=== PATIENT | female | born 1995 | race Caucasian/White ===

== ENCOUNTER 2021-08-24 05:40 | Inpatient (IN) | payer OTHER ==
[2021-08-24] MEDS ORDERED: ELECTROLYTE-148 SOLN 1,000 ML IV SCH ×2 (06:20→10:30)
[2021-08-24 06:36] VITALS: BMI 32.9
[2021-08-24] MEDS ORDERED: SUCCINYLCHOLINE CHLORIDE 200 MG/10 ML SYRINGE ONE (08:05)
[2021-08-24] MEDS ORDERED: PROPOFOL 20 ML ONE (08:05)
[2021-08-24] MEDS ORDERED: morphine SULFATE (PF) 1 MG/2 ML SYRINGE ONE (08:05)
[2021-08-24] MEDS ORDERED: PHENYLEPHRINE HCL 10 MG/1 ML SINGLE DOSE VIAL ONE (08:06)
[2021-08-24] MEDS ORDERED: ceFAZolin SODIUM 1 GM VIAL ONE (08:08)
[2021-08-24] MEDS ORDERED: ONDANSETRON 4 MG/2 ML VIAL IVPUSH PRN (10:11)
[2021-08-24] MEDS ORDERED: IBUPROFEN 600 MG TABLET (FP) PO PRN (10:12)
[2021-08-24] MEDS ORDERED: morphine SULFATE/PF 1 MG/2 ML (2cc Syringe - QUVA) EP ONE (10:12)
[2021-08-24] MEDS ORDERED: LACTATED RINGERS SOLUTION 1,000 ML IV SCH (10:15)
[2021-08-24] MEDS ORDERED: CITRIC ACID/SODIUM CITRATE 30 ML UNIT-DOSE CUP PO ONE (10:22)
[2021-08-24] MEDS ORDERED: ELECTROLYTE-148 SOLN 500 ML IV ONE (10:22)
[2021-08-24] MEDS ORDERED: oxyCODONE HCL 5 MG TABLET PO PRN ×2 (10:24)
[2021-08-24] MEDS ORDERED: METHYLERGONOVINE MALEATE 0.2 MG/1 ML AMP IM PRN (10:24)
[2021-08-24] MEDS ORDERED: OXYTOCIN 20 UNITS in 0.9% NS 20 UNIT/1,000 ML INFUS.BAG IV SCH (10:30)
[2021-08-24 12:07] LABS: HIV INTERPRETATION NEGATIVE (NEGATIVE)
[2021-08-24] MEDS ORDERED: OXYTOCIN 20 UNITS in 0.9% NS 20 UNIT/1,000 ML INFUS.BAG IV ONE (13:10)
[2021-08-24] MEDS: IBUPROFEN 600 MG TABLET (FP) PO PRN (13:10)
[2021-08-24] MEDS ORDERED: IBUPROFEN 600 MG TABLET (FP) PO ONE (13:17)
[2021-08-24] MEDS ORDERED: SENNOSIDES/DOCUSATE COMBO (SENNA PLUS) TABLET (UD) PO PRN (22:00)
[2021-08-25] MEDS: IBUPROFEN 600 MG TABLET (FP) PO PRN ×4 (00:01→20:01)
[2021-08-25] MEDS: SIMETHICONE 80 MG TAB.CHEW (FP) PO PRN ×3 (00:01→20:02)
[2021-08-25] MEDS: ACETAMINOPHEN 325 MG TABLET (FP) PO PRN ×2 (00:02→20:01)
[2021-08-25 06:28] LABS: BASO % 0.1 % (0-2.0); EOS % 0.4 % (0-4.5); HEMOGLOBIN 8.5 GM/dL (10.7-15.3); LYMPH % 14.4 % (8-40); MCH 30.6 pg (25.7-33.7); MCHC 33.9 g/dl (32.0-36.0); MEAN CELL VOLUME 90.4 fl (80-96); MEAN PLT VOLUME 10.3 fl (7.5-11.1); MONO % 7.5 % (3.8-10.2); NEUT % 77.6 % (42.8-82.8); PLATELET COUNT 166 10^3/uL (134-434); RBC 2.77 M/mm3 (3.60-5.2); RDW 13.8 % (11.6-15.6); WHITE BLOOD COUNT 8.9 K/mm3 (4.0-10.0)
[2021-08-25] MEDS: PRENATAL VITAMINS W/ FOLIC ACID TABLET (FP) PO SCH (09:04)
[2021-08-25] MEDS ORDERED: BISACODYL 10 MG SUPP.RECT RC PRN (10:24)
[2021-08-25] MEDS: FERROUS SO4 325 MG TABLET (FP) PO SCH (16:59)
[2021-08-25 20:58] VITALS: TEMP 98.2
[2021-08-26] MEDS: ACETAMINOPHEN 325 MG TABLET (FP) PO PRN (04:09)
[2021-08-26] MEDS: IBUPROFEN 600 MG TABLET (FP) PO PRN (04:10)
[2021-08-26] MEDS: SIMETHICONE 80 MG TAB.CHEW (FP) PO PRN (04:11)
[2021-08-26] MEDS: PRENATAL VITAMINS W/ FOLIC ACID TABLET (FP) PO SCH (10:15)
[2021-08-26] MEDS: FERROUS SO4 325 MG TABLET (FP) PO SCH (10:15)
[2021-08-26 10:21] VITALS: BP 132/83; PULSE 87
== END 2021-08-26 11:35 | disposition home or self-care (01) | DRG 540 ==
LOC: JLDR 05:40 → J3W 15:15
PROVIDERS: ADMIT Obstetrics & Gynecology; ATTEND Obstetrics & Gynecology
PROC: 10D00Z1 Extraction of Products of Conception, Low, Open Approach (ICD-10-PCS; principal; 2021-08-24)
DX: O30.033 Twin pregnancy, monochorionic/diamniotic, third trimester (principal); O32.8XX0 Maternal care for other malpresentation of fetus, not applicable or unspecified; Z3A.36 36 weeks gestation of pregnancy; Z37.2 Twins, both liveborn
CPT/HCPCS: 36415; 85025; 87389; 88307-TC